=== PATIENT | male | born 1975 | race American Indian/Alaskan Native ===

== ENCOUNTER 2021-05-17 20:22 | Emergency (ER) | payer SELFPAY | END 2021-05-17 23:10 | disposition left against medical advice (07) | LOC: ED 20:22 | DX: R53.81 Other malaise (principal); Z53.21 Procedure and treatment not carried out due to patient leaving prior to being seen by health care provider ==

== ENCOUNTER 2021-05-18 02:04 | Emergency (ER) | payer SELFPAY ==
[2021-05-18 02:24] VITALS: BP 154/86
== END 2021-05-18 06:33 ==
LOC: ED 02:04
DX: F22 Delusional disorders (principal); Z53.21 Procedure and treatment not carried out due to patient leaving prior to being seen by health care provider